=== PATIENT | male | born 1950 | race Hispanic/Latino ===

== ENCOUNTER → 2019-08-31 | Outpatient (CLI) | payer OTHER ==
[~2019-08-31] VITALS: Ht 162.6 cm; Wt 83.5 kg
[~2019-08-31] MED LIST: ASPI-1012 PO; ATOR-2 PO; CANA300T PO; EZET10TA13 PO; GLYB5TAB8 PO; ISOS30TA6 PO; LEVO25TA9 PO; METF-446 PO; METO-408 PO; MULT-1258 PO; NITR0.4T SL; REGADENOSON 0.4 MG/5 ML PF SYG IVP SCH; VIT D PO
== END | disposition home or self-care (01) ==
LOC: SHCH 07:53
PROVIDERS: ATTEND Internal Medicine Cardiovascular Disease
DX: R07.9 Chest pain, unspecified (principal)
CPT/HCPCS: 78452; 93017; 96374; A9500 ×2; J2785